=== PATIENT | male | born 1990 | race Caucasian/White ===

== ENCOUNTER 2020-08-20 14:32 | Emergency (ER) | payer OTHER, SELFPAY ==
[2020-08-20 14:53] VITALS: BP 97/55; PULSE 92; RESP 16; TEMP 36.8; O2SAT 98; BMI 21.4
--- NOTE | 2020-08-20 17:25 | XRR_ITS ---
PROCEDURE INFORMATION: Exam: XR Chest Exam date and time: 08/20/2020 5:25 PM Age: 30 years old Clinical indication: Cough TECHNIQUE: Imaging protocol: XR of the chest. Views: 1 view. COMPARISON: No relevant prior studies available. FINDINGS: Lungs: Right upper lobe probable calcified pulmonary granuloma. Pleural spaces: Unremarkable. No pleural effusion. No pneumothorax. Heart/Mediastinum: Unremarkable. No cardiomegaly. Bones/joints: Unremarkable. XR/XR chest 1V portable [id number] IMPRESSION: Negative for infiltrate
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
[2020-08-20 18:35] LABS: Basophils % 0.4 %; Eosinophils % 0.2 %; Hematocrit 50.5 % (42.0-52.0); Hemoglobin 16.3 g/dL (11.7-16.6); Lymphocytes % 21.9 %; Mean Corpuscular HGB Conc 32.3 g/dL (30.0-36.0); Mean Platelet Volume 11.7 fL (7.4-10.4); Monocytes # 0.7 10^3/uL (0.2-0.9); Monocytes % 15.3 %; Neutrophils # 2.88 10^3/uL (1.8-7.7); Nucleated Red Blood Cells % 0 %; Platelet Count 122 10^3/cmm (130-400); Red Blood Count 5.43 10^6/uL (4.1-5.3); Red Cell Distribution Width 12.6 % (12.1-15.1); White Blood Count 4.7 10^3/uL (4.0-10.0)
[2020-08-20 18:42] VITALS: BP 131/79; PULSE 88; RESP 18; O2SAT 98
[2020-08-20] MEDS: sodium chloride 0.9% 500 ML 1000 ML IV (18:48)
[2020-08-20] MEDS: vancomycin 1,500 MG/300 ML PIGGYBACK 200 MG IV (18:48)
[2020-08-20 18:54] VITALS: O2SAT 98
[2020-08-20 18:57] LABS: Rapid Strep A Test Negative (Negative)
[2020-08-20 18:59] LABS: Slide Review Slide Review Perform
[2020-08-20 19:07] LABS: Influenza A by IFA Negative (Negative); Influenza B by IFA Negative (Negative)
[2020-08-20 19:34] VITALS: BP 114/65; PULSE 86; RESP 17; O2SAT 96
[2020-08-20 19:51] LABS: Lactate (Lactic Acid level) 1.1 mmol/L (0.5-2.2)
[2020-08-20 19:52] LABS: Alanine Aminotransferase 10 U/L (0-41); Albumin Level 4.1 g/dL (3.5-5.2); Alkaline Phosphatase 81 IU/L (40-130); Anion Gap 13.8 (5-19); Aspartate Amino Transferase 15 U/L (0-40); Blood Urea Nitrogen 13 mg/dL (6-20); Calcium 8.4 mg/dL (8.5-10.5); Carbon Dioxide 26 mmol/L (22-29); Chloride 96 mmol/L (98-107); Globulin 2.8 g/dL (1.3-4.6); Glomerular Filtration Rate 114.3 mL/min (90-130); Glucose 83 mg/dL (65-115); Osmolality Calculated 273 mOsm/kg (285-295); Potassium 3.8 mmol/L (3.5-5.1); Sodium 132 mmol/L (136-145); Total Bilirubin 0.4 mg/dL (0.15-1.2); Total Protein 6.9 g/dL (6.6-8.7)
[2020-08-20 19:56] LABS: Amphetamines Screen Urine Positive (Negative); Barbiturates Screen Urine Negative (Negative); Benzodiazepines Screen Urine Positive (Negative); Cocaine Screen Urine Negative (Negative); Opiate Screen Urine Negative (Negative); PCP Screen Urine Negative (Negative); THC Screen Urine Positive (Negative)
[2020-08-20 20:05] LABS: Add Urine Culture? No; Bacteria Urine TRACE /hpf; Bilirubin Urine Neg (Negative); Blood Urine Neg (Negative); Glucose Urine UA Norm (Normal); Ketones Urine Negative (Negative); Leukocyte Esterase Urine Negative (Negative); Mucus Urine 2+ /hpf; Nitrate Urine Negative (Negative); Protein Urine Neg (Negative); RBC Urine 0-4 /hpf (0-2); Specific Gravity, Urine 1.025 (1.005-1.030); Squamous Epithelial Cell Urine 0-4 /hpf (0-5); Urine Appearance Clear (CLEAR); Urine Color Yellow (Yellow); Urobilinogen Urine Norm (Negative); WBC Urine 0-4 /hpf (0-5); pH Urine 5 (5-7)
[2020-08-20] MEDS: diphenhydrAMINE 50 mg/mL SDV 1mL 25 MG IVP (20:58)
[2020-08-20 21:00] VITALS: BP 125/69; PULSE 95; RESP 17; O2SAT 99
[2020-08-25 09:22] LABS: Quest SARS-CoV-2 RNA DETECTED (NOT DETECTED)
== END 2020-08-20 21:05 | disposition home or self-care (01) ==
PROVIDERS: Family Medicine; Emergency Provider Emergency Medicine
DX: A49.02 Methicillin resistant Staphylococcus aureus infection, unspecified site (principal); L03.90 Cellulitis, unspecified; Z20.822 Contact with and (suspected) exposure to COVID-19
CPT/HCPCS: 71045; 80053; 80306; 81001; 83605; 85025; 87040; 87081; 87086; 87635; 87804; 87880; 96365; 96375; 99284; J1200; J3370; J7050

== ENCOUNTER 2021-06-07 19:05 | Emergency (ER) | payer SELFPAY ==
[2021-06-07 19:42] VITALS: BP 143/92; PULSE 100; RESP 14; TEMP 36.6; O2SAT 99; BMI 21.9
--- NOTE | 2021-06-07 19:50 | ED_ITS ---
HPI - Eye Problem General: Chief complaint: Eye Problems Stated complaint: L eye injury Time Seen by Provider: 06/07/21 19:50 History of Present Illness: 31-year-old male patient comes in today for discomfort to the left eye. 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 We do note a speck of metal at the 8 o'clock position within the iris of the left eye. It is not involve the area of the pupil. Patient also reports headache. Associated symptoms: Reports headache(s); Denies vomiting Review of Systems General: Reports: 10 or more systems reviewed and unremarkable except in HPI and below Eyes: Reports: eye discomfort and eye redness ENMT: Denies: throat pain GI: Denies: vomiting Neuro: Reports: headache(s) Physical Exam Const: COMMON NORMALS: alert HENMT: COMMON NORMALS: normocephalic HEAD & SCALP: normocephalic Eye: COMMON NORMALS: Equal, round and reactive pupils present VISUAL WEBB: No peripheral vision loss PERIORBITAL: periorbital findings normal CONJUNCTIVA: Yes conjunctival abnormal positive left conjunctival injection CORNEA: Yes fluorescein used (Abrasion to the left cornea with foreign body.) PUPIL: Yes Equal, round and reactive pupils present and Yes Pupil accommodation reflex normal Neck/C-Spine: COMMON NORMALS: full ROM Resp: COMMON NORMALS: normal respiratory effort and clear to auscultation bila terally AUSCULTATION: clear to auscultation bilaterally Cardio: COMMON NORMALS: regular rate and regular rhythm RATE: regular rate RHYTHM: regular rhythm GI: COMMON NORMALS: Soft to palpation PALPATION: Yes Soft to palpation Extremity: COMMON NORMALS: full ROM Neuro: SENSORIUM/ORIENTATION: Yes alert Skin: COMMON NORMALS: no rashes or lesions noted GENERAL SKIN EXAM: no rashes or lesions noted Procedures FB Removal Eye Location: eye (L) Topical anesthetic used: tetracaine Foreign body: metal Evidence of corneal penetration: No Technique: cotton tip swab and needle Procedure performed under: direct visualization with magnification Post-procedure medication: ophthalmic antibiotic and topical anesthetic Patient tolerated procedure: well Complications: residual rust ring Course Vital Signs: Vital signs: Vital Signs Temperature 97.8 F 06/07/21 19:42 Pulse Rate 100 06/07/21 20:08 Respiratory Rate 14 06/07/21 20:08 Blood Pressure 143/92 06/07/21 20:08 Pulse Oximetry 99 06/07/21 20:08 MDM - Eye Problem Medical Decision Making 31-year-old male patient comes in today with complaints of foreign body to the left eye. On exam we see a speck of metal to the 8 o'clock position at the edge of the iris of the left eye. Under fluorescein stain we note a small abrasion approximately 3 mm. Differential diagnosis includes corneal abrasion, corneal laceration, rust ring. I was able to remove the metal with a needle technique under local anesthetic. I recommended patient follow-up in 3 days with eye vp care management for repeat evaluation. Patient was placed on antibiotic eyedrops for the next 7 days. Patient reported understanding of care plan and need for follow-up or return to the ER. Discharge Plan Discharge Patient Disposition: Home Clinical Impression: Corneal foreign body Qualifiers: Encounter type: initial encounter Laterality: left Qualified Code(s): T15.02XA - Foreign body in cornea, left eye, initial encounter Condition: Stable Discharge Orders: Discharge ED (Routine); Ordered 06/07/21 Ordered By: Chuy Paez Discharge Diet: Usual diet Discharge Activity: Increase activity as tolerated Patient Instructions: Eye Foreign Body (ED), Opioid Safety Activity Restrictions/Additional Instructions: Use antibiotic eyedrop 1 drop to the affected eye 4 times a day for the next 7 days. You may use tetracaine, pain eyedrops, 1 drop every 3 hours as needed for eye pain. Follow-up with eye vp care management in 2 to 3 days for recheck. Return to ER for new concerns. Coding Level of Care Code ED Cd Manufacturing Supervisor for Emanuel Rapp
[2021-06-07 20:08] VITALS: BP 143/92; PULSE 100; RESP 14; O2SAT 99
== END 2021-06-07 20:47 | disposition home or self-care (01) ==
PROVIDERS: Emergency Provider Nurse Practitioner Family
DX: T15.02XA Foreign body in cornea, left eye, initial encounter (principal); W29.8XXA Contact with other powered hand tools and household machinery, initial encounter
CPT/HCPCS: 65220; 99283

== ENCOUNTER 2021-08-22 15:53 | Emergency (ER) | payer SELFPAY ==
[2021-08-22 16:15] VITALS: BP 98/57; PULSE 100; RESP 20; TEMP 36.6; O2SAT 98; BMI 22.5
--- NOTE | 2021-08-22 16:24 | ED_ITS ---
HPI - Eye Problem General: Chief complaint: Eye Problems Stated complaint: Something in left eye Time Seen by Provider: 08/22/21 16:24 Source: patient Mode of arrival: ambulatory Limitations: no limitations History of Present Illness: Patient is a 31-year-old male who presents to ED today with a complaint of a foreign body sensation to his left eye. He states he began noticing symptoms yesterday. He states he has had metal in his eye previously that has felt similar. He reports he was grinding metal several days ago so was not sure if he could have another piece in it. Patient is not having any visual changes or visual loss. He has not had any direct injury or trauma to his eye. No other systemic symptoms. MD chief complaint: eye pain, eye redness and foreign body Onset (ago): day(s) Duration: constant Location: left eye Eye Symptoms: foreign body sensation Place: home Severity: moderate Associated symptoms: Denies fever(s), headache(s) or neck pain Treatments Prior to Arrival: irrigated eye Related Data: Patient tetanus UTD: Yes Review of Systems Const: Denies: fever(s), chills, body aches or fatigue Eyes: Reports: photophobia and eye discomfort; Denies: change in vision, blurry vision, eye discharge, floaters or seeing flashes ENMT: Denies: throat pain, odynophagia, ear or mastoid pain, nasal discharge, nasal congestion or sinus pain Musc: Denies: neck pain Skin/Breast: Denies: rash Neuro: Denies: headache(s) Physical Exam Const: COMMON NORMALS: no acute distress, average body habitus, patient oriented x3, no limitations, healthy appearing, alert and well nourished GENERAL APPEARANCE: cooperative HENMT: COMMON NORMALS: normocephalic and atraumatic HEAD & SCALP: normal to inspection, normocephalic and atraumatic Eye: COMMON NORMALS: Equal, round and reactive pupils present, EOMs intact bilaterally, no scleral icterus and normal visual mustafa by confrontation GENERAL EYE: normal light reflex VISUAL ACUITY: Yes acuity normal ALIGNMENT: Yes alignment normal PERIORBITAL: periorbital findings normal EYELID: eyelids normal CONJUNCTIVA: Yes conjunctival abnormal (L injection) SCLERA: sclerae normal CORNEA: Yes fluorescein used (small corneal abrasion to 10 oclock position; no fb) PUPIL: Yes Equal, round and reactive pupils present DIRECT OPHTHALMOSCOPY: Yes normal light reflex EYE IMAGES: 1. small corneal abrasion Neuro: COMMON NORMALS: patient oriented x3 SENSORIUM/ORIENTATION: Yes alert Course Vital Signs: Vital signs: Vital Signs Temperature 98 F 08/22/21 16:15 Pulse Rate 100 08/22/21 16:15 Respiratory Rate 20 H 08/22/21 16:15 Blood Pressure 98/57 08/22/21 16:15 Pulse Oximetry 98 08/22/21 16:15 MDM - Eye Problem Medical Decision Making I do not visualize any foreign body/metallic pieces. He does have a small corneal abrasion. Will be treated with erythromycin ointment and recommend strict follow-up if eye does not begin to improve over the next 48 hours. Patient verbalizes understanding. Return to ED precautions given. Discharge Plan Discharge Patient Disposition: Home Clinical Impression: Corneal abrasion Qualifiers: Encounter type: initial encounter Laterality: left Qualified Code(s): S05.02XA - Injury of conjunctiva and corneal abrasion without foreign body, left eye, initial encounter Condition: Stable Prescriptions: New erythromycin 5 mg/gram (0.5 %) ointment 1 applic ophthalmic (eye) Q4H 7 Days Qty: 1 0RF Discharge Orders: Discharge ED (Routine); Ordered 08/22/21 Ordered By: Della Goldman Coding Level of Care Code ED Electromechanical Assembler for Emanuel Rapp
[2021-08-22] MEDS: eye irrigation 30 mL Btl EYE-LEFT (17:06)
[2021-08-22] MEDS: erythromycin Op Oint 1 gm 1 APPLIC EYE-LEFT (17:07)
[2021-08-22] MEDS: fluorescein 1 mg Strip EYE-LEFT (17:07)
[2021-08-22] MEDS: tetracaine 0.5% Op Soln 4 mL Btl 1 DROP EYE-LEFT (17:07)
== END 2021-08-22 17:32 | disposition home or self-care (01) ==
PROVIDERS: Emergency Provider Physician Assistant
DX: S05.02XA Injury of conjunctiva and corneal abrasion without foreign body, left eye, initial encounter (principal); W31.1XXA Contact with metalworking machines, initial encounter
CPT/HCPCS: 99283

== ENCOUNTER 2021-11-02 18:33 | Emergency (ER) | payer SELFPAY ==
[2021-11-02 18:38] VITALS: BP 107/71; PULSE 111; RESP 18; TEMP 36.6; O2SAT 95; BMI 21.4
[2021-11-02 20:30] LABS: Basophils # 0.1 10^3/uL (0.0-0.1); Basophils % 0.6 %; Eosinophils # 0.3 10^3/uL (0.0-0.8); Eosinophils % 3.1 %; Hematocrit 45.4 % (42.0-52.0); Lymphocytes # 3.2 10^3/uL (0.8-4.8); Lymphocytes % 37.4 %; Mean Corpuscular Hemoglobin 30.9 pg (28.0-34.0); Mean Corpuscular Volume 93.4 fl (80-94); Mean Platelet Volume 10.4 fL (7.4-10.4); Monocytes # 0.7 10^3/uL (0.2-0.9); Monocytes % 7.6 %; Neutrophils # 4.43 10^3/uL (1.8-7.7); Neutrophils % 51.1 %; Nucleated Red Blood Cells % 0 %; Platelet Count 229 10^3/cmm (130-400); Red Blood Count 4.86 10^6/uL (4.1-5.3); Red Cell Distribution Width 12.5 % (12.1-15.1); White Blood Count 8.7 10^3/uL (4.0-10.0)
[2021-11-02 20:56] LABS: Alanine Aminotransferase 14 U/L (0-41); Albumin Level 4.6 g/dL (3.5-5.2); Alkaline Phosphatase 64 U/L (40-130); Anion Gap 14.8 (5-19); Aspartate Amino Transferase 14 U/L (0-40); Blood Urea Nitrogen 15 mg/dL (6-20); Calcium 9.7 mg/dL (8.5-10.5); Carbon Dioxide 28 mmol/L (22-29); Chloride 102 mmol/L (98-107); Creatinine Clr Calc Pharmacy 150.0719; Globulin 2.3 g/dL (1.3-4.6); Glomerular Filtration Rate 99.1 mL/min (90-130); Glucose 96 mg/dL (65-115); Lipase 20 U/L (13-60); Osmolality Calculated 293 mOsm/kg (285-295); Potassium 3.8 mmol/L (3.5-5.1); Sodium 141 mmol/L (136-145); Total Bilirubin 0.4 mg/dL (0.15-1.2); Total Protein 6.9 g/dL (6.6-8.7)
[2021-11-02 20:57] LABS: Lactate (Lactic Acid level) 1.3 mmol/L (0.5-2.2)
== END 2021-11-02 21:35 | disposition left against medical advice (07) ==
PROVIDERS: Emergency Medicine; Emergency Provider Family Medicine
DX: Z53.21 Procedure and treatment not carried out due to patient leaving prior to being seen by health care provider (principal); R10.11 Right upper quadrant pain
CPT/HCPCS: 80053; 83605; 83690; 85025

== ENCOUNTER 2021-12-31 12:34 | Emergency (ER) | payer MEDICAID, SELFPAY ==
[2021-12-31 13:04] VITALS: PULSE 90; RESP 16; TEMP 36.1; O2SAT 100
[2021-12-31 14:15] LABS: Basophils # 0.1 10^3/uL (0.0-0.1); Basophils % 0.3 %; Eosinophils # 0.2 10^3/uL (0.0-0.8); Eosinophils % 1.3 %; Hemoglobin 17.7 g/dL (11.7-16.6); Lymphocytes # 1.6 10^3/uL (0.8-4.8); Lymphocytes % 9.2 %; Mean Corpuscular HGB Conc 32.2 g/dL (30.0-36.0); Mean Corpuscular Hemoglobin 30.9 pg (28.0-34.0); Mean Corpuscular Volume 96.2 fl (80-94); Mean Platelet Volume 10.8 fL (7.4-10.4); Monocytes # 1.2 10^3/uL (0.2-0.9); Monocytes % 6.8 %; Neutrophils # 14.29 10^3/uL (1.8-7.7); Neutrophils % 81.9 %; Nucleated Red Blood Cells % 0 %; Platelet Count 215 10^3/cmm (130-400); Red Blood Count 5.72 10^6/uL (4.1-5.3); White Blood Count 17.4 10^3/uL (4.0-10.0)
--- NOTE | 2021-12-31 14:24 | ED_ITS ---
HPI - Abdominal Pain General: Chief Complaint: Abdominal Pain Stated Complaint: Throwing up, stomach hurts, sick Time Seen by Provider: 12/31/21 14:23 History of Present Illness: 31-year-old male patient comes in today with complaints of cough with congestion starting on Saturday, then nausea and vomiting starting today. Patient appears mildly unwell but not toxic. Patient is unempl oyed. Patient reports no routine medications or medical problems. Associated Symptoms: Reports chills, nausea and vomiting Review of Systems Const: Reports: chills and malaise Card: Denies: chest pain Resp: Reports: non-productive cough GI: Reports: nausea and vomiting : Reports: flank pain Physical Exam Const: COMMON NORMALS: alert HENMT: COMMON NORMALS: normocephalic HEAD & SCALP: normocephalic THROAT: posterior oropharynx normal Neck/C-Spine: COMMON NORMALS: full ROM and supple Resp: COMMON NORMALS: normal respiratory effort and clear to auscultation bilaterally AUSCULTATION: clear to auscultation bilaterally Cardio: COMMON NORMALS: regular rate and regular rhythm RATE: regular rate RHYTHM: regular rhythm GI: COMMON NORMALS: Soft to palpation AUSCULTATION: Yes normoactive bowel sounds PALPATION: Yes Soft to palpation and Yes Tenderness to palpation present (GI) (Mild generalized) : BLADDER/KIDNEY EXAM: Yes CVA tenderness bilateral Back/Pelvis: GENERAL BACK: Yes CVA tenderness Extremity: COMMON NORMALS: no pedal edema Neuro: SENSORIUM/ORIENTATION: Yes alert Skin: COMMON NORMALS: turgor normal GENERAL SKIN EXAM: turgor normal Course Vital Signs: Vital signs: Vital Signs Temperature 97.0 F L 12/31/21 13:04 Pulse Rate 80 12/31/21 15:00 Respiratory Rate 17 12/31/21 14:38 Blood Pressure 113/83 12/31/21 15:00 Pulse Oximetry 99 12/31/21 15:00 Oxygen Delivery Me thod 12/31/21 15:00 MDM - Abdominal Pain Medical Decision Making Patient comes in today for complaints of illness since Saturday. Patient reports nausea and vomiting starting today. Patient reports that it started off of her cough and congestion on Saturday. On exam patient has bilateral CVA tenderness, abdomen soft with some generalized tenderness, lungs are clear to auscultation, posterior pharynx is pink and moist. Differential diagnosis includes influenza, COVID-19, viral syndrome, dehydration, gastroenteritis, renal calculi, UTI. CBC showed a elevation in red blood cells and white blood cells. BMP was unremarkable except for some elevation in potassium at 5.5. Believe patient was dehydrated he was given 2 L of IV fluids. CT of the abdomen pelvis noted enteritis. Chest x-ray was normal. Believe the patient probably is suffering from a viral syndrome he was rehydrated and started on Zofran for nausea. Patient reported understanding of care plan and need for follow-up or return to the ER for worsening symptoms. Lab Data : 12/31/21 13:59 12/31/21 13:59 Labs/Radiology: Radiology Impressions Abdomen/Pelvis CT 12/31/21 14:28 IMPRESSION: 1. Nondilated, fluid-filled loops of small bowel with liquefied stool and air-fluid levels in the colon. Query mild nonspecific enteritis. 2. Additional findings, as above. Chest X-Ray 12/31/21 14:30 IMPRESSION: No acute radiographic findings. Laboratory Results WBC 17.4 10^3/uL (4.0-10.0) H 12/31/21 13:59 RBC 5.72 10^6/uL (4.1-5.3) H 12/31/21 13:59 Hgb 17.7 g/dL (11.7-16.6) H 12/31/21 13:59 Hct 55.0 % (42.0-52.0) H 12/31/21 13:59 MCV 96.2 fl (80-94) H 12/31/21 13:59 MCH 30.9 pg (28.0-34.0) 12/31/21 13:59 MCHC 32.2 g/dL (30.0-36.0) 12/31/21 13:59 RDW 13.0 % (12.1-15.1) 12/31/21 13:59 Plt Count 215 10^3/cmm (130-400) 12/31/21 13:59 MPV 10.8 fL (7.4-10.4) H 12/31/21 13:59 Neut % (Auto) 81.9 % 12/31/21 13:59 Lymph % (Auto) 9.2 % 12/31/21 13:59 [place] % (Auto) 6.8 % 12/31/21 13:59 Eos % (Auto) 1.3 % 12/31/21 13:59 Baso % (Auto) 0.3 % 12/31/21 13:59 Neut # (Auto) 14.29 10^3/uL (1.8-7.7) H 12/31/21 13:59 Lymph # (Auto) 1.6 10^3/uL (0.8-4.8) 12/31/21 13:59 [place] # (Auto) 1.2 10^3/uL (0.2-0.9) H 12/31/21 13:59 Eos # (Auto) 0.2 10^3/uL (0.0-0.8) 12/31/21 13:59 Baso # (Auto) 0.1 10^3/uL (0.0-0.1) 12/31/21 13:59 Nucleated RBC % (auto) 0 % 12/31/21 13:59 Nucleated RBCs # 0.0 /100WBC 12/31/21 13:59 Sodium 137 mmol/L (136-145) 12/31/21 13:59 Potassium 5.5 mmol/L (3.5-5.1) H 12/31/21 13:59 Chloride 101 mmol/L (98-107) 12/31/21 13:59 Carbon Dioxide 27 mmol/L (22-29) 12/31/21 13:59 Anion Gap 14.5 (5-19) 12/31/21 13:59 BUN 15 mg/dL (6-20) 12/31/21 13:59 Creatinine 0.8 mg/dL (0.7-1.2) 12/31/21 13:59 GFR Calculation 113.5 mL/min (90-130) 12/31/21 13:59 Glucose 94 mg/dL (65-115) 12/31/21 13:59 Calculated Osmolality 285 mOsm/kg (285-295) 12/31/21 13:59 Calcium 9.7 mg/dL (8.5-10.5) 12/31/21 13:59 Total Bilirubin 0.3 mg/dL (0.15-1.2) 12/31/21 13:59 AST 16 U/L (0-40) 12/31/21 13:59 ALT 16 U/L (0-41) 12/31/21 13:59 Alkaline Phosphatase 92 U/L (40-130) 12/31/21 13:59 Total Protein 8.4 g/dL (6.6-8.7) 12/31/21 13:59 Albumin 5.0 g/dL (3.5-5.2) 12/31/21 13:59 Globulin 3.4 g/dL (1.3-4.6) 12/31/21 13:59 Lipase 16 U/L (13-60) 12/31/21 13:59 Urine Color Yellow (Yellow) 12/31/21 14:40 Urine Appearance Clear (CLEAR) 12/31/21 14:40 Urine pH 5 (5-7) 12/31/21 14:40 Ur Specific [place] 1.025 (1.005-1.030) 12/31/21 14:40 Urine Protein Neg (Negative) 12/31/21 14:40 Urine Glucose (UA) Norm (Normal) 12/31/21 14:40 Urine Ketones Negative (Negative) 12/31/21 14:40 Urine Blood Neg (Negative) 12/31/21 14:40 Urine Nitrate Negative (Negative) 12/31/21 14:40 Urine Bilirubin 1+ (Negative) H 12/31/21 14:40 Urine Urobilinogen Norm mg/dL (Negative) 12/31/21 14:40 Ur Leukocyte Esterase Negative (Negative) 12/31/21 14:40 Discharge Plan Discharge Patient Disposition: Home Clinical Impression: Viral syndrome, Dehydration Condition: Stable Prescriptions: New ondansetron HCl 4 mg tablet 4 mg PO Q8H PRN (Reason: nausea and vomiting) Qty: 10 0RF Discharge Orders: Discharge ED (Routine); Ordered 12/31/21 Ordered By: Chuy Paez Discharge Diet: Advance as tolerated Discharge Activity: Increase activity as tolerated Patient Instructions: Viral Syndrome (ED) Activity Restrictions/Additional Instructions: Home and rest. Continue with drinking sips of fluids to maintain hydration. Follow-up with primary care as needed. Return to ED for worsening symptoms such as inability to urinate within 8 hours, blood in vomit or stool, increased shortness of breath, or new concerns. Coding Level of Care Code ED On Site Wastewater Systems Technician for Emanuel Fwd Exam Comprehensive
--- NOTE | 2021-12-31 14:28 | CTR_ITS ---
PROCEDURE INFORMATION: Exam: CT Abdomen And Pelvis With Contrast Exam date and time: 12/31/2021 2:57 PM Age: 31 years old Clinical indication: Fever; Abdominal pain; Additional info: Fever, flank pain, n/v TECHNIQUE: Imaging protocol: Computed tomography of the abdomen and pelvis with contrast. Axial, coronal and sagittal reformatted images were created and reviewed. Radiation optimization: All CT scans at this facility use at least one of these dose optimization techniques: automated exposure control; mA and/or kV adjustment per patient size (includes targeted exams where dose is matched to clinical indication); or iterative reconstruction. Contrast material: OMNIPAQUE 350; Contrast volume: 100 ml; Contrast route: INTRAVENOUS (IV); COMPARISON: CR XR chest 1V portable [id number] 08/20/2020 5:39 PM RADIATION DOSE METRICS: Total DLP (mGy-cm): 439.13 FINDINGS: Liver: Unremarkable. Gallbladder and bile ducts: No radiodense gallstones. No biliary ductal dilatation. Pancreas: Unremarkable. Spleen: Coarse calcified splenic granuloma. Adrenal glands: Normal. No mass. Kidneys and ureters: No mass. No radiodense calculi. No hydronephrosis. Stomach and bowel: Nondilated, fluid-filled loops of small bowel with liquefied stool and air-fluid levels in the colon. No obstruction. No definite bowel wall thickening. No pneumatosis. Appendix: Normal. Intraperitoneal space: No free fluid. No organized fluid collection. No free air. Vasculature: Unremarkable. No aneurysm. Lymph nodes: Small mesenteric lymph nodes, likely reactive. No pathologically enlarged lymph nodes. Urinary bladder: Unremarkable as visualized. Reproductive: Unremarkable. Bones/joints: No acute osseous abnormality. Soft tissues: Unremarkable. CT/CT abdomen pelvis w con* [id number] IMPRESSION: 1. Nondilated, fluid-filled loops of small bowel with liquefied stool and air-fluid levels in the colon. Query mild nonspecific enteritis. 2. Additional findings, as above.
--- NOTE | 2021-12-31 14:30 | XRR_ITS ---
PROCEDURE INFORMATION: Exam: XR Chest Exam date and time: 12/31/2021 3:03 PM Age: 31 years old Clinical indication: Cough; Additional info: Cough, flank pain, n/v TECHNIQUE: Imaging protocol: Radiologic exam of the chest. Views: 1 view. COMPARISON: CR XR chest 1V portable [id number] 08/20/2020 5:39 PM FINDINGS: Lungs: Unremarkable. No consolidation. Pleural spaces: Unremarkable. No pleural effusion. No pneumothorax. Heart/Mediastinum: Unremarkable. No cardiomegaly. Bones/joints: Unremarkable. XR/XR chest 1V portable [id number] IMPRESSION: No acute radiographic findings.
[2021-12-31 14:38] VITALS: BP 113/83; RESP 17; O2SAT 100
[2021-12-31 14:42] LABS: Alanine Aminotransferase 16 U/L (0-41); Alkaline Phosphatase 92 U/L (40-130); Anion Gap 14.5 (5-19); Aspartate Amino Transferase 16 U/L (0-40); Blood Urea Nitrogen 15 mg/dL (6-20); Calcium 9.7 mg/dL (8.5-10.5); Carbon Dioxide 27 mmol/L (22-29); Chloride 101 mmol/L (98-107); Globulin 3.4 g/dL (1.3-4.6); Glomerular Filtration Rate 113.5 mL/min (90-130); Glucose 94 mg/dL (65-115); Lipase 16 U/L (13-60); Osmolality Calculated 285 mOsm/kg (285-295); Potassium 5.5 mmol/L (3.5-5.1); Sodium 137 mmol/L (136-145); Total Bilirubin 0.3 mg/dL (0.15-1.2); Total Protein 8.4 g/dL (6.6-8.7)
[2021-12-31] MEDS: ondansetron 4 MG Tablet PO (14:45)
[2021-12-31] MEDS: sodium chloride 0.9% 1,000 ML 999 ML IV (14:46)
[2021-12-31 15:00] VITALS: BP 113/83; PULSE 80; O2SAT 99
[2021-12-31] MEDS: iohexol 350 mg/mL 500 mL Btl (per mL) IV (15:01)
[2021-12-31 15:06] LABS: Add Urine Microscopic? NO; Charge for UA Resulting for Rev
[2021-12-31 15:22] LABS: Bilirubin Urine 1+ (Negative); Blood Urine Neg (Negative); Glucose Urine UA Norm (Normal); Ketones Urine Negative (Negative); Leukocyte Esterase Urine Negative (Negative); Nitrate Urine Negative (Negative); Protein Urine Neg (Negative); Specific Gravity, Urine 1.025 (1.005-1.030); Urine Appearance Clear (CLEAR); Urine Color Yellow (Yellow); Urobilinogen Urine Norm (Negative); pH Urine 5 (5-7)
[2021-12-31 15:52] VITALS: BP 125/88; PULSE 82; O2SAT 100
== END 2021-12-31 15:50 | disposition home or self-care (01) ==
PROVIDERS: Emergency Provider Nurse Practitioner Family
DX: B34.9 Viral infection, unspecified (principal); E86.0 Dehydration
CPT/HCPCS: 36415; 71045; 74177; 80053; 81003; 83690; 85025; 96360; 99285; J7030; Q0162; Q9967

== ENCOUNTER 2023-03-20 10:40 | Emergency (ER) | payer MEDICAID, SELFPAY ==
[2023-03-20 10:44] VITALS: BP 128/76; PULSE 83; TEMP 36.7; O2SAT 99; BMI 23.1
--- NOTE | 2023-03-20 10:45 | XR_ITS ---
WS: [id number] Portable AP upright chest, 03/20/2023 Clinical Data: cough Comparison: Portable chest, 12/31/2021 Findings: No nodules, masses or effusions are seen. The heart is normal. The pulmonary vascularity is not increased. No pneumonia or pneumothorax is seen. Impression: Negative chest.
--- NOTE | 2023-03-20 10:48 | ECG_ITS ---
[facility] Test Date: 2023-03-20 Pat Name: Zeb Petit Department: Room: Gender: Male [employer] Maker: : 1990 Requested By: Radha Dailey Order Number: [id number] Debby MD: Mason Sanchez M.D. Measurements Intervals [place] Rate: 89 P: 69 MN: 160 QRS: 86 QRSD: 89 T: 67 QT: 333 QTc: 405 Interpretive Statements SINUS RHYTHM EARLY REPOLARIZATION [ST ELEVATION WITH NORMALLY INFLECTED T-WAVE] No previous ECG available for comparison Electronically Signed On 03-20-2023 18:30:46 DRAGSAW OPERATOR by Mason Sanchez M.D. [id number] f
--- NOTE | 2023-03-20 11:26 | ED_ITS ---
HPI - URI/Sore Throat 2 General: Chief Complaint: Upper Respiratory Infection Stated Complaint: cough,fever, upper back pain Time Seen by Provider: 03/20/23 11:17 Source: patient Mode of arrival: ambulatory Limitations: no limitations History of Present Illness: 32-year-old male states over the last 3 days has had cough along with some sore throat headache and bodyaches. States he is also had some back pain he states it seems to be worse with his cough and some slight chest pain as well. No vomiting no diarrhea no known sick contacts. He is in no distress here. Associated symptoms: Reports chest pain and headache(s); Deny abdominal pain, chills, diarrhea, fever(s), nausea or vomiting Review of Systems 2 Const: Reports: body aches; Denies: fever(s), chills or change in appetite Eyes: Denies: blurry vision or eye discomfort ENMT: Denies: throat pain or dental pain Card: Reports: chest pain Resp: Reports: non-productive cough; Denies: dyspnea GI: Denies: abdominal pain, nausea, vomiting or diarrhea Musc: Reports: back pain; Denies: neck pain Skin/Breast: Denies: rash Neuro: Reports: headache(s) Physical Exam 2 Const: COMMON NORMALS: no acute distress, patient oriented x3 and healthy appearing HENMT: COMMON NORMALS: normocephalic and atraumatic HEAD & SCALP: n ormocephalic and atraumatic MOUTH: Normal oral and palatal mucosa present THROAT: posterior oropharynx normal Eye: COMMON NORMALS: conjunctivae normal CONJUNCTIVA: Yes conjunctivae normal Neck/C-Spine: COMMON NORMALS: full ROM, supple and no meningeal signs Chest: COMMONS NORMALS: normal inspection of the chest Resp: COMMON NORMALS: normal respiratory effort, No retractions, No use of accessory muscles and clear to auscultation bilaterally AUSCULTATION: clear to auscultation bilaterally Cardio: COMMON NORMALS: regular rate, regular rhythm and No murmurs present (Cardio) RATE: regular rate RHYTHM: regular rhythm Back/Pelvis: COMMON NORMALS: thoracic and lumbar spine normal to inspection and no thoracic nor lumbar tenderness Extremity: COMMON NORMALS: normal to inspection and full ROM Neuro: COMMON NORMALS: patient oriented x3, moves all extremities and no focal motor deficits MENINGEAL SIGNS: Yes no meningeal signs Psych: COMMON NORMALS: mental status grossly normal, Normal thought process present and cooperative THOUGHT PROCESS: Normal thought process present Skin: COMMON NORMALS: no rashes or lesions noted and no wounds GENERAL SKIN EXAM: no rashes or lesions noted Course 2 Vital Signs: Vital signs: Vital Signs Temperature 98.1 F 03/20/23 10:44 Pulse Rate 83 03/20/23 10:44 Blood Pressure 128/76 03/20/23 10:44 Pulse Oximetry 99 03/20/23 10:44 Oxygen Delivery Me thod Room Air 03/20/23 10:44 MDM - URI/Sore Throat Medical Decision Making Patient presents here with cough likely upper respiratory infection his back exam here is benign he has no signs of pneumonia white counts normal did give him a Decadron shot he is stable for discharge he is follow-up with PCP and return if worsening he understands agrees to plan. Medical Records I reviewed the patient's medical records. Lab Data I reviewed the patient's lab results. 03/20/23 11:38 Laboratory Results WBC 5.11 10^3/uL (3.29-11.43) 03/20/23 11:38 RBC 5.00 10^6/uL (3.85-5.65) 03/20/23 11:38 Hgb 15.30 g/dL (11.27-16.99) 03/20/23 11:38 Hct 45.1 % (37-53) 03/20/23 11:38 MCV 90.2 fl (82-101) 03/20/23 11:38 MCH 30.6 pg (27-33) 03/20/23 11:38 MCHC 33.9 g/dL (30-55) 03/20/23 11:38 RDW 12.4 % (12.1-15.1) 03/20/23 11:38 Plt Count 205 10^3/cmm (157-399) 03/20/23 11:38 MPV 9.8 fL (7.4-10.4) 03/20/23 11:38 Neut % (Auto) 51.1 % 03/20/23 11:38 Lymph % (Auto) 26.8 % 03/20/23 11:38 [place] % (Auto) 16.8 % 03/20/23 11:38 Eos % (Auto) 4.1 % 03/20/23 11:38 Baso % (Auto) 1.0 % 03/20/23 11:38 Neut # (Auto) 2.61 10^3/uL (1.8-7.7) 03/20/23 11:38 Lymph # (Auto) 1.4 10^3/uL (0.8-4.8) 03/20/23 11:38 [place] # (Auto) 0.9 10^3/uL (0.2-0.9) 03/20/23 11:38 Eos # (Auto) 0.2 10^3/uL (0.0-0.8) 03/20/23 11:38 Baso # (Auto) 0.1 10^3/uL (0.0-0.1) 03/20/23 11:38 Nucleated RBC % (auto) 0 % 03/20/23 11:38 Nucleated RBCs # 0.0 /100WBC 03/20/23 11:38 Influenza Type A Ag negative (Negative) 03/20/23 11:56 Influenza Type B Ag negative (Negative) 03/20/23 11:56 SARS-CoV-2 Ag (Rapid) negative (Negative) 03/20/23 11:56 All radiology interpretation(s) finalized by discharge Discharge Plan Discharge Patient Disposition: Home Clinical Impression: Upper respiratory infection Condition: Stable Prescriptions: No Action [place] DayQuil 2-30 mg/5 mL Liquid 30 ml PO Q6H PRN (Reason: Cough) Discharge Orders: Discharge ED (Routine); Ordered 03/20/23 Ordered By: Radha Dailey Discharge Diet: Advance as tolerated Discharge Activity: Resume usual activity Patient Instructions: Upper Respiratory Infection (ED) Coding Level of Care Code ED Ed Case Manager for Emanuel Rapp
[2023-03-20 11:43] LABS: Basophils # 0.1 10^3/uL (0.0-0.1); Eosinophils # 0.2 10^3/uL (0.0-0.8); Eosinophils % 4.1 %; Hematocrit 45.1 % (37-53); Lymphocytes # 1.4 10^3/uL (0.8-4.8); Lymphocytes % 26.8 %; Mean Corpuscular HGB Conc 33.9 g/dL (30-55); Mean Corpuscular Hemoglobin 30.6 pg (27-33); Mean Corpuscular Volume 90.2 fl (82-101); Mean Platelet Volume 9.8 fL (7.4-10.4); Monocytes # 0.9 10^3/uL (0.2-0.9); Monocytes % 16.8 %; Neutrophils # 2.61 10^3/uL (1.8-7.7); Neutrophils % 51.1 %; Nucleated Red Blood Cells % 0 %; Platelet Count 205 10^3/cmm (157-399); Red Cell Distribution Width 12.4 % (12.1-15.1); White Blood Count 5.11 10^3/uL (3.29-11.43)
[2023-03-20] MEDS: ketorolac 30 mg/mL INJ IM (12:10)
[2023-03-20] MEDS: dexamethasone 10 mg/mL INJ IM (12:10)
[2023-03-20 12:26] LABS: Influenza A by IFA negative (Negative); Influenza B by IFA negative (Negative)
[2023-03-20 12:28] LABS: SARS Covid-2 Antigen negative (Negative)
== END 2023-03-20 13:02 | disposition home or self-care (01) ==
PROVIDERS: Emergency Provider Emergency Medicine
DX: J06.9 Acute upper respiratory infection, unspecified (principal); Z11.52 Encounter for screening for COVID-19
CPT/HCPCS: 36415; 71045; 85025; 87426; 87804; 93005; 96372; 99285; J1100; J1885

== ENCOUNTER 2024-05-17 10:07 | Emergency (ER) | payer SELFPAY ==
[2024-05-17 10:11] VITALS: BP 107/75; PULSE 95; TEMP 36.8; O2SAT 97; BMI 34.7
--- NOTE | 2024-05-17 10:58 | W.ED.EYEPROB ---
HPI - Eye Problem General: Chief complaint: Eye Problems Stated complaint: eyes stuck shut in morning past 5 days Time Seen by Provider: 05/17/24 10:52 History of Present Illness: This healthy 33-year-old male presents emergency room with eye drainage and mild irritation. Some redness. This been going on for a few days now. No severe pain. 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 He and his both had a respiratory illness recently. Currently no cough or shortness of breath. No fevers. No vision changes. No pain with eye movement. Vision is grossly normal. Related Data Home Medications ?Medication ?Instructions ?Recorded ?Confirmed chlorpheniramine-pseudoephedrine 2 30 ml PO Q6H PRN Cough 03/20/23 05/17/24 mg-30 mg/5 mL oral liquid Previous Rx's ?Medication ?Instructions ?Recorded [id number] 3.5 2 drp ophthalmic (eye) Q6H 5 days 05/17/24 mg/mL-10,000 unit/mL-0.1% eye #5 mL drops (Maxitrol) Allergies Allergy/AdvReac Type Severity Reaction Status Date / Time cefaclor (From [facility]) Allergy Unknown Verified 05/17/24 10:19 Sulfa (Sulfonamide Allergy Unknown Verified 05/17/24 10:19 Antibiotics) Review of Systems Narrative: Constitutional symptoms: Negative except as documented in HPI. Skin symptoms: Negative except as documented in HPI. Eye symptoms: Negative except as documented in HPI. ENMT symptoms: Negative except as documented in HPI. Respiratory symptoms: Negative except as documented in HPI. Cardiovascular symptoms: Negative except as documented in HPI. Gastrointestinal symptoms: Negative except as documented in HPI. Genitourinary symptoms: Negative except as documented in HPI. Musculoskeletal symptoms: Negative except as documented in HPI. Neurologic symptoms: Negative except as documented in HPI. Psychiatric symptoms: Negative except as documented in HPI. Endocrine symptoms: Negative except as documented in HPI. Physical Exam Narrative: EXAM NARRATIVE: General: Alert, no acute distress. Skin: warm and dry Head: Normocephalic Neck: Trachea midline Eye: Extraocular movements are intact. Some scleral and conjunctival erythema, exudate on the eyelids and eyelashes. Vision grossly intact. No pain with eye movement. Ears, nose, mouth and throat: Oral mucosa moist Respiratory: Respirations are non-labored Musculoskeletal: Normal ROM Neurological: Alert and oriented, No focal neurological deficit observed. Psychiatric: Cooperative, appropriate mood & affect. Course Vital Signs: Vital signs: Vital Signs Temperature 98.2 F 05/17/24 10:11 Pulse Rate 95 05/17/24 10:11 Blood Pressure 107/75 05/17/24 10:11 Pulse Oximetry 97 05/17/24 10:11 Oxygen Delivery Me thod Room Air 05/17/24 10:11 MDM - Eye Problem Medical Decision Making Assessment and plan: Conjunctivitis ?Likely viral conjunctivitis but will treat with a steroid/antibiotic eyedrop. - Discharged home - Discussed plan with patient. Answered any questions. - Evaluation and treatment of this problem were appropriate in the emergency setting. No radiology studies performed this visit Discharge Plan Discharge Patient Disposition: Home Clinical Impression: Conjunctivitis Condition: Stable Prescriptions: New neomycin-polymyxin B-dexameth [Maxitrol] 3.5mg/mL-10,000 unit/mL-0.1 % drops,suspension 2 drp ophthalmic (eye) Q6H 5 Days Qty: 5 0RF No Action Vicks DayQuil 2-30 mg/5 mL Liquid 30 ml PO Q6H PRN (Reason: Cough) Discharge Orders: Discharge ED (Routine); Ordered 05/17/24 Ordered By: Hattie Gonzalez Discharge Diet: Usual diet Discharge Activity: Increase activity as tolerated Patient Instructions: Conjunctivitis (ED), Opioid Safety, Pain Management Activity Restrictions/Additional Instructions: Thank you for choosing [facility] for your healthcare needs today. Please realize this is an emergency room and that we are providing you with a medical screening exam and this may not be complete and all inclusive of all the testing and or work up that you may need to determine your ailment or severity of your illness. You have been screened and evaluated and felt safe for discharge. Health conditions do change or evolve sometimes and as such it is important that you follow up with your Primary Doctor to be re checked, 3-5 days is a general good time frame for follow up. You are always welcome to return to the ED for re assessment if your symptoms are worsening or you have new concerns Print Language: Greek Coding Level of Care Code ED Inspector Penetrant for Emanuel Rapp
== END 2024-05-17 11:12 | disposition home or self-care (01) ==
PROVIDERS: Emergency Provider Emergency Medicine
DX: H10.9 Unspecified conjunctivitis (principal)
CPT/HCPCS: 99283

== ENCOUNTER 2024-05-26 18:28 | Emergency (ER) | payer SELFPAY ==
[2024-05-26 18:34] VITALS: BP 116/71; PULSE 99; TEMP 36.8; O2SAT 99; BMI 25.4
[2024-05-26 19:27] LABS: Rapid Strep A Test Negative (Negative)
== END 2024-05-26 20:58 | disposition left against medical advice (07) ==
PROVIDERS: Emergency Medicine; Emergency Provider Family Medicine
DX: Z53.21 Procedure and treatment not carried out due to patient leaving prior to being seen by health care provider (principal); Z01.89 Encounter for other specified special examinations
CPT/HCPCS: 87081; 87880